=== PATIENT | female | born 1960 | race American Indian/Alaskan Native ===

== ENCOUNTER 2018-06-18 17:55 | Observation (INO) | payer BC ==
[2018-06-18 18:04] VITALS: BMI 36.3
[2018-06-18] MEDS ORDERED: Sodium Chloride 0.9% 1,000 ML IV STA (19:15)
--- NOTE | 2018-06-18 19:21 | ED PDOC ---
Arrival/HPI - General Chief Complaint: Dizziness/Lightheaded Time Seen by Provider: 06/18/18 18:31 Historian: Patient - History of Present Illness Narrative History of Present Illness (Text): 06/18/18 19:16 57yr old female with hx of headaches for many years presents today with headache upon waking in the morning. pt states the headache is the same headache as always. pt states the headache starts in the neck and wraps around both sides to the forehead. pt states the headache gradually worsened. pt states that the headache is an achy pain. denies photophobia. pt states that she is feeling extremely dizzy and off balance. pt states she vomited once which doesnt occur with her headaches. pt denies cp or sob. no fever/chills. pt states she took naproxen for headache without resolution which is also unlike her normal head aches. Past Medical History - Provider Review Nursing Documentation Reviewed: Yes - Travel History Have you recently traveled outside [place] w/in the past 3 mons?: No - Infectious Disease Hx of Infectious Diseases: None - Psychiatric Hx Substance Use: No - Surgical History Hx Hysterectomy: Yes Family/Social History - Physician Review Nursing Documentation Reviewed: Yes Family/Social History: Unknown Family HX Smoking Status: Never Smoked Hx Alcohol Use: No Hx Substance Use: No Allergies/Home Meds Allergies/Adverse Reactions: Allergies No Known Allergies Allergy (Verified 06/18/18 18:04) Home Medications: Home Meds Medication Instructions Recorded Confirmed Naproxen [Naprosyn] 500 mg PO BID 06/18/18 06/18/18 Review of Systems - Review of Systems Constitutional: absent: Fatigue, Fevers Eyes: absent: Vision Changes, Photophobia, Eye Pain ENT: Sinus Congestion. absent: Sore Throat Respiratory: absent: SOB, Cough Cardiovascular: absent: Chest Pain, Palpitations Gastrointestinal: absent: Abdominal Pain, Constipation, Diarrhea, Nausea, Vomiting Genitourinary Female: absent: Dysuria, Frequency, Hematuria Musculoskeletal: absent: Arthralgias, Back Pain, Neck Pain Skin: absent: Rash, Pruritis Neurological: Headache, Dizziness. absent: Focal Weakness, Speech Changes Psychiatric: absent: Anxiety, Depression Physical Exam Vital Signs Reviewed: Yes Vital Signs Temp Pulse Resp BP Pulse Ox 06/18/18 18:05 97.8 F 82 17 138/88 98 Temperature: Afebrile Blood Pressure: Normal Pulse: Regular Respiratory Rate: Normal Appearance: Positive for: Well-Appearing, Non-Toxic, Comfortable Pain Distress: None Mental Status: Positive for: Alert and Oriented X 3 - Systems Exam Head: Present: Atraumatic Pupils: Present: PERRL Extroacular Muscles: Present: EOMI Conjunctiva: Present: Normal Ears: Present: Normal, NORMAL TM Mouth: Present: Moist Mucous Membranes Pharnyx: Present: Normal Nose (External): Present: Atraumatic Nose (Internal): Present: Engorged, Clear Mucous Neck: Present: Normal Range of Motion Respiratory/Chest: Present: Clear to Auscultation, Good Air Exchange. No: Respiratory Distress, Accessory Muscle Use Cardiovascular: Present: Regular Rate and Rhythm, Normal S1, S2. No: Murmurs Abdomen: No: Tenderness, Distention, Peritoneal Signs Upper Extremity: Present: Normal ROM Lower Extremity: Present: Normal ROM Neurological: Present: GCS=15, Speech Normal, Motor Func Grossly Intact, Normal Sensory Function Skin: Present: Warm, Dry, Normal Color. No: Rashes Psychiatric: Present: Alert, Oriented x 3 Medical Decision Making ED Course and Treatment: 06/18/18 19:23 57yr old female with headache, dizziness and unstead gait/near syncope. cbc; wnl cmp wnl trop; wnl ekg; normal sinus rhythm at 78 bpm normal axis no ST elevations 06/18/18 21:03 FINDINGS: BRAIN No acute intraparenchymal hemorrhage. No mass lesion. No CT evidence for acute territorial infarct. No midline shift or extra-axial collections. Bilateral basal ganglia calcifications. VENTRICLES: No hydrocephalus. ORBITS: The orbits are unremarkable. SINUSES AND MASTOIDS: The paranasal sinuses and mastoid air cells are clear. BONES: No fracture. SOFT TISSUES: Unremarkable. IMPRESSION: No acute intracranial abnormality. Electronically signed on Jun 18, 2018 8:20:42 PM EST by: Martin Nino M.D., JHOAN Certified By [facility] & [facility] Trained MRI and CT Specialist pt given toradol and reglan after negative Ct. pt reassessment; pt feeling better. headache improved. still feeling slightly dizziness asa given po. case discussed with dr. escamilla; will admit observational status to remote [facility] for dizziness, headache, near syncope. consult dr. skelton. all aspects of this case were discussed the attending of record. impression: headache, dizziness, near syncope admit - RAD Interpretation Radiology Orders: 06/18/18 19:06 HEAD W/O CONTRAST [CT] Stat CHEST PORTABLE [RAD] Stat - Medication Orders Current Medication Orders: Sodium Chloride (Sodium Chloride 0.9%) 1,000 mls @ 999 mls/hr IV .Q1H1M STA Stop: 06/18/18 20:15 Metoclopramide HCl (Reglan) 10 mg IVP STAT STA Stop: 06/18/18 19:16 Disposition/Present on Arrival - Present on Arrival Any Indicators Present on Arrival: No History of DVT/PE: No History of Uncontrolled Diabetes: No Urinary Catheter: No History of Decub. Ulcer: No History Surgical Site Infection Following: None - Disposition Have Diagnosis and Disposition been Completed?: Yes Diagnosis: Dizziness, Headache Disposition: HOSPITALIZED Disposition Time: 22:00 Patient Plan: Observation Condition: FAIR Forms: [employer] (Irish)
[2018-06-18 20:07] LABS: BASO # 0.05 K/mm3 (0.0-2.0); BASO % 0.8 % (0.0-3.0); EOS # 0.2 (0.0-0.7); EOS % 2.6 % (1.5-5.0); GRAN # 3.21 (1.4-6.5); GRAN % 51.9 % (50.0-68.0); HEMOGLOBIN 12.2 g/dL (12.0-16.0); LYMPH # 2.4 (1.2-3.4); LYMPH % 39.2 % (22.0-35.0); MEAN CELL VOLUME 83.8 fl (80.0-105.0); MEAN CORPUSCULAR HEMOGLOBIN 26.8 pg (25.0-35.0); MEAN CORPUSCULAR HGB CONC 31.9 g/dl (31.0-37.0); MEAN PLATELET VOLUME 12.6 fl (7.0-11.0); MONO # 0.3 (0.1-0.6); MONO % 5.5 % (1.0-6.0); RBC 4.56 10^6/uL (3.5-6.1); RED CELL DISTRIBUTION WIDTH 15.4 % (11.5-14.5); WHITE BLOOD COUNT 6.2 10^3/uL (4.5-11.0)
[2018-06-18 20:54] LABS: ALB/GLOB RATIO 1.1 (1.1-1.8); ALT/SGPT 17 U/L (7-56); AST/SGOT 25 U/L (14-36); BLOOD UREA NITROGEN 17 mg/dL (7-21); CALCIUM 9.4 mg/dL (8.4-10.5); GFR NON-AFRICAN AMERICAN > 60
[2018-06-18 21:05] LABS: TROPONIN I < 0.01 ng/mL
[2018-06-18 22:35] LABS: URINE BILIRUBIN NEGATIVE (NEGATIVE); URINE BLOOD NEGATIVE (NEGATIVE); URINE GLUCOSE (UA) NEGATIVE (NEGATIVE); URINE LEUKOCYTE ESTERASE NEGATIVE Leu/uL (NEGATIVE); URINE PROTEIN NEGATIVE mg/dL (<30 mg/dL); URINE UROBILINOGEN 0.2 E.U./dL (<1 E.U./dL)
[2018-06-18 22:46] LABS: URINE APPEARANCE CLEAR (CLEAR); URINE COLOR YELLOW (YELLOW)
[2018-06-18] MEDS ORDERED: Sodium Chloride 0.9% 1,000 ML IV SCH (23:45)
[2018-06-19 01:04] LABS: IRON 44 ug/dL (45-180)
[2018-06-19 01:14] LABS: % IRON SATURATION 20 % (20-55); TOTAL IRON BINDING CAPACITY 222 ug/dL (265-497)
[2018-06-19 01:17] VITALS: RESP 20
--- NOTE | 2018-06-19 04:23 | CP.PCM.HP ---
History of Present Illness - History of Present Illness History of Present Illness: Tin Lanza, PGY-1 Medicine H&P Note for Dr. Hansen: CC: Headaches and dizziness Pt is a 57 yo F with pmhx of headaches, asthma and GERD who presents to the ED for headache and dizziness which started this AM. She states that she has had this headache since and was not able to eat much during the day yesterday. She states that then this AM when she woke up she noticed that the headache was still there and she also noticed dizziness upon standing. She states that she felt as if she was spinning and was unable to walk straight. She admits that the headache that she is feeling is chronic and is something that she deals with regularly. She describes the headache as a band like pain that starts from the neck. She denies noticing an aura with the beginning of the headache and reports that she only uses naproxen for the headaches which typically brings relief. She admits that even today she has not been able to eat or drink anything due to the headache and that she had one bout of non-blood, non-bilious vomiting. She continues to admit to nausea but denies any further episodes of vomiting since the isolated incident which she had earlier in the day. At this time she admits to a continued headache, but denies fevers, chills, recent infection, sick contacts, ringing in the ears, photophobia, aura prior to headache onset, chest pain, palpitations, LE swelling, SOB, cough, weakness, numbness, tingling, abd pain, or dysuria. Pmhx: headaches, asthma and GERD Pshx: Hysterectomy for fibroids 30 years ago Meds: Naproxen All: NKDA Social: Denies any tobacco hx or any etoh or illicit drug use Fam: Non-contributory Neurologist: Dr. Hoang Present on Admission - Present on Admission Any Indicators Present on Admission: No Review of Systems - Review of Systems Review of Systems: 12 point ROS reviewed and negative except for noted in HPI above. Past Patient History - Infectious Disease Hx of Infectious Diseases: None - Past Social History Smoking Status: Never Smoked - CARDIAC Hx Cardiac Disorders: No - PULMONARY Hx Respiratory Disorders: Yes Hx Asthma: Yes (seasonal) - NEUROLOGICAL Hx Neurological Disorder: Yes Hx Migraine: Yes - HEENT Hx HEENT Problems: Yes (glasses) - RENAL Hx Chronic Kidney Disease: No - ENDOCRINE/METABOLIC Hx Endocrine Disorders: No - HEMATOLOGICAL/ONCOLOGICAL Hx Blood Disorders: Yes Hx Anemia: Yes (iron def.) Hx Cancer: (familial) - INTEGUMENTARY Hx Dermatological Problems: No - MUSCULOSKELETAL/RHEUMATOLOGICAL Hx Musculoskeletal Disorders: Yes Hx Fractures: Yes (right arm) - GASTROINTESTINAL Hx Gastrointestinal Disorders: Yes Hx Gastroesophageal Reflux: Yes - GENITOURINARY/GYNECOLOGICAL Hx Genitourinary Disorders: Yes (hysterectomy/ oopherectomy) - PSYCHIATRIC Hx Psychophysiologic Disorder: No - SURGICAL HISTORY Hx Surgeries: Yes Hx Hysterectomy: Yes Meds Allergies/Adverse Reactions: Allergies Allergy/AdvReac Type Severity Reaction Status Date / Time No Known Allergies Allergy Verified 06/18/18 18:04 Physical Exam - Constitutional Appears: Well, Non-toxic, No Acute Distress - Head Exam Head Exam: ATRAUMATIC, NORMAL INSPECTION, NORMOCEPHALIC - Eye Exam Eye Exam: EOMI, Normal appearance, PERRL - Respiratory Exam Respiratory Exam: Clear to Auscultation Bilateral, NORMAL BREATHING PATTERN. absent: Accessory Muscle Use, Decreased Breath Sounds, Rales, Rhonchi, Wheezes, Respiratory Distress, Stridor - Cardiovascular Exam Cardiovascular Exam: RRR, +S1, +S2. absent: Gallop, Rubs - GI/Abdominal Exam GI & Abdominal Exam: Normal Bowel Sounds, Soft. absent: Distended, Firm, Guarding, Tenderness - Extremities Exam Extremities exam: Positive for: normal capillary refill, normal inspection, pedal pulses present - Back Exam Back exam: NORMAL INSPECTION. absent: CVA tenderness (L), CVA tenderness (R) - Neurological Exam Neurological exam: Alert, Oriented x3 - Psychiatric Exam Psychiatric exam: Normal Affect, Normal Mood - Skin Skin Exam: Dry, Normal Color, Warm Results - Vital Signs Recent Vital Signs: Last Vital Signs Temp 98.4 F 06/19/18 00:18 Pulse 71 06/19/18 02:00 Resp 20 06/19/18 00:35 BP 116/67 06/19/18 00:18 Pulse Ox 98 06/19/18 00:18 - Labs Result Diagrams: 06/18/18 19:30 06/18/18 20:30 Labs: Laboratory Results - last 24 hr 06/18/18 06/18/18 06/18/18 19:30 19:30 20:30 WBC 6.2 RBC 4.56 Hgb 12.2 Hct 38.2 MCV 83.8 MCH 26.8 MCHC 31.9 RDW 15.4 H Plt Count 198 MPV 12.6 H Gran % 51.9 Lymph % (Auto) 39.2 H Dale % (Auto) 5.5 Eos % (Auto) 2.6 Baso % (Auto) 0.8 Gran # 3.21 Lymph # (Auto) 2.4 Dale # (Auto) 0.3 Eos # (Auto) 0.2 Baso # (Auto) 0.05 ESR 52 H Sodium 140 Potassium 3.8 Chloride 107 Carbon Dioxide 26 Anion Gap 11 BUN 17 Creatinine 0.9 Est GFR ( Amer) > 60 Est GFR (Non-Af Amer) > 60 Random Glucose 97 Calcium 9.4 Iron TIBC % Saturation Total Bilirubin 0.6 AST 25 ALT 17 Alkaline Phosphatase 112 Lactate Dehydrogenase 394 Total Creatine Kinase 161 Troponin I < 0.01 Total Protein 7.6 Albumin 4.0 Globulin 3.6 Albumin/Globulin Ratio 1.1 TSH 3rd Generation Urine Color Urine Appearance Urine pH Ur Specific Mystic Urine Protein Urine Glucose (UA) Urine Ketones Urine Blood Urine Nitrate Urine Bilirubin Urine Urobilinogen Ur Leukocyte Esterase 06/18/18 06/18/18 06/18/18 20:30 20:30 22:20 WBC RBC Hgb Hct MCV MCH MCHC RDW Plt Count MPV Gran % Lymph % (Auto) Dale % (Auto) Eos % (Auto) Baso % (Auto) Gran # Lymph # (Auto) Dale # (Auto) Eos # (Auto) Baso # (Auto) ESR Sodium Potassium Chloride Carbon Dioxide Anion Gap BUN Creatinine Est GFR ( Amer) Est GFR (Non-Af Amer) Random Glucose Calcium Iron 44 L TIBC 222 L % Saturation 20 Total Bilirubin AST ALT Alkaline Phosphatase Lactate Dehydrogenase Total Creatine Kinase Troponin I Total Protein Albumin Globulin Albumin/Globulin Ratio TSH 3rd Generation 3.05 Urine Color Yellow Urine Appearance Clear Urine pH 7.0 Ur Specific Mystic 1.010 Urine Protein Negative Urine Glucose (UA) Negative Urine Ketones Negative Urine Blood Negative Urine Nitrate Negative Urine Bilirubin Negative Urine Urobilinogen 0.2 Ur Leukocyte Esterase Negative Assessment & Plan - Assessment and Plan (Free Text) Assessment: Pt is a 57 yo F with pmhx of headaches, asthma and GERD who presents to the ED for headache and dizziness which started this AM. Head CT in ED was negative for acute pathology. Plan: 1. Dizziness likely 2/2 poor po intake: - Head CT was negative for acute intracranial pathology - MRI and MRA brain with contrast - MRI internal auditory canal - Neuro consult: Dr. Lal - Lipid - TSH - ESR - CRP - HgbA1c - ASA - Lovenox - Lipitor 2. Hx of GERD: - Protonix 3. Hx of asthma: - Pt states that she has not used rescue inhaler in a long time and is having no respiratory complaints at this time - Will continue to monitor pt 4. PPx: - GI: Protonix - DVT: Lovenox Case seen and discussed with Dr. Jade Lanza, PGY-1
[2018-06-19] MEDS ORDERED: Pantoprazole 40 mg EC Tab PO SCH (06:00)
[2018-06-19 06:34] LABS: BASO # 0.06 K/mm3 (0.0-2.0); BASO % 0.9 % (0.0-3.0); EOS # 0.2 (0.0-0.7); EOS % 2.7 % (1.5-5.0); GRAN # 2.98 (1.4-6.5); GRAN % 42.4 % (50.0-68.0); HEMOGLOBIN 11.4 g/dL (12.0-16.0); LYMPH # 3.3 (1.2-3.4); LYMPH % 46.9 % (22.0-35.0); MEAN CELL VOLUME 83.6 fl (80.0-105.0); MEAN CORPUSCULAR HEMOGLOBIN 27.1 pg (25.0-35.0); MEAN CORPUSCULAR HGB CONC 32.4 g/dl (31.0-37.0); MEAN PLATELET VOLUME 12.5 fl (7.0-11.0); MONO # 0.5 (0.1-0.6); MONO % 7.1 % (1.0-6.0); RBC 4.21 10^6/uL (3.5-6.1); RED CELL DISTRIBUTION WIDTH 15.4 % (11.5-14.5)
[2018-06-19 07:17] LABS: ALB/GLOB RATIO 1.1 (1.1-1.8); ALBUMIN 3.6 g/dL (3.0-4.8); ALT/SGPT 23 U/L (7-56); AST/SGOT 23 U/L (14-36); BLOOD UREA NITROGEN 13 mg/dL (7-21); CALCIUM 8.8 mg/dL (8.4-10.5); GFR NON-AFRICAN AMERICAN > 60; HDL CHOLESTEROL 42 mg/dL (29-60)
[2018-06-19 07:24] LABS: LDL CHOLESTEROL 195 mg/dL (0-129)
[2018-06-19] MEDS ORDERED: Naproxen 550 mg Tab PO PRN (09:13)
--- NOTE | 2018-06-19 09:27 | RAD ---
Date of service: 06/18/2018 HISTORY: dizziness COMPARISON: 10/18/2014 FINDINGS: LUNGS: No active pulmonary disease. PLEURA: No significant pleural effusion identified, no pneumothorax apparent. CARDIOVASCULAR: No aortic atherosclerotic calcification present. Normal cardiac size. No pulmonary vascular congestion. OSSEOUS STRUCTURES: No significant abnormalities. VISUALIZED UPPER ABDOMEN: Normal. OTHER FINDINGS: None. IMPRESSION: No active disease.
[2018-06-19] MEDS ORDERED: Enoxaparin 40 mg Syringe SC SCH (10:00)
--- NOTE | 2018-06-19 10:08 | CT ---
Date of service: 06/18/2018 PROCEDURE: CT HEAD WITHOUT CONTRAST. HISTORY: headache, dizziness COMPARISON: None available. TECHNIQUE: Axial computed tomography images were obtained through the head/brain without intravenous contrast. Radiation dose: Total exam DLP = 1089.72 mGy-cm. This CT exam was performed using one or more of the following dose reduction techniques: Automated exposure control, adjustment of the mA and/or kV according to patient size, and/or use of iterative reconstruction technique. FINDINGS: HEMORRHAGE: No intracranial hemorrhage. BRAIN: No mass effect or edema. No atrophy or chronic microvascular ischemic changes. VENTRICLES: Unremarkable. No hydrocephalus. CALVARIUM: Unremarkable. PARANASAL SINUSES: Unremarkable as visualized. No significant inflammatory changes. MASTOID AIR CELLS: Unremarkable as visualized. No inflammatory changes. OTHER FINDINGS: None. IMPRESSION: Normal CT of the Head.
[2018-06-19 10:28] LABS: T4 11.2 ug/dL (5.5-11.0)
[2018-06-19] MEDS ORDERED: Gadodiamide 287 MG/ML VIAL (15ML) IV ONE (11:38)
[2018-06-19] MEDS ORDERED: Dexamethasone 4 MG in Sodium Chloride 0.9% 50 ML IV ONE (11:40)
[2018-06-19 12:50] LABS: FOLATE 7.4 ng/mL
--- NOTE | 2018-06-19 13:14 | MRI ---
Date of service: 06/19/2018 PROCEDURE: MRI BRAIN WITH AND WITHOUT CONTRAST HISTORY: HEADACHE COMPARISON: None available. TECHNIQUE: Multiplanar, multisequence MR images of the brain were obtained with and without intravenous contrast enhancement. 15 cc of Omniscan FINDINGS: HEMORRHAGE: None DWI: No evidence of an acute or early subacute infarction. BRAIN PARENCHYMA: No mass,mass effect or edema. No atrophy or chronic microvascular ischemic changes. ENHANCEMENT: No abnormal intracranial enhancement. VENTRICLES: Unremarkable. No hydrocephalus. CRANIUM: Unremarkable. ORBITS: Grossly unremarkable. PARANASAL SINUSES/MASTOIDS: Clear VASCULAR SYSTEM: Skull base flow voids intact. OTHER FINDINGS: None . IMPRESSION: Unremarkable pre and post contrast enhanced MRI of the brain.
--- NOTE | 2018-06-19 13:16 | MRI ---
Date of service: 06/19/2018 PROCEDURE: Magnetic Resonance Angiography Brain HISTORY: HEADCAHE COMPARISON: None available. TECHNIQUE: 3D time of flight MR angiography of the intracranial arteries was performed. Rotating maximum intensity projection images were generated. FINDINGS: INTERNAL CAROTID ARTERIES: Unremarkable. The skull base, petrous, cavernous and supraclinoid segments are bilaterally widely patient. ANTERIOR CEREBRAL ARTERIES: Unremarkable. A1 and A2 segments are widely patent. Smaller distal branches unremarkable, as visualized. MIDDLE CEREBRAL ARTERIES: Unremarkable. M1 and M2 segments are widely patent. Perisylvian branches grossly symmetric. POSTERIOR CIRCULATION: Basilar Artery: Unremarkable. Distal Vertebral Arteries: Unremarkable. Posterior Cerebral Arteries: Unremarkable. Posterior Inferior Cerebellar Arteries: Unremarkable. ANEURYSM/ VASCULAR MALFORMATIONS: None. OTHER FINDINGS: None. IMPRESSION: Unremarkable MR angiography of the brain.
[2018-06-19 14:17] LABS: BARBITURATES, UR NEGATIVE (NEGATIVE); BENZODIAZEPINES, UR NEGATIVE (NEGATIVE); OPIATES, UR NEGATIVE (NEGATIVE); PHENCYCLIDINE, UR NEGATIVE (NEGATIVE)
[2018-06-19 17:01] VITALS: BP 123/85; PULSE 83; TEMP 97.9; O2SAT 98
--- NOTE | 2018-06-19 18:25 | CARD ---
APPROVED REPORT Date of service: 06/18/2018 EKG Measurement Heart [id number] <Conclusion> Normal sinus rhythm Minimal voltage criteria for LVH, may be normal variant Borderline ECG
--- NOTE | 2018-06-19 18:33 | CON ---
DATE: 06/19/2018 NEUROLOGY CONSULTATION CHIEF COMPLIANT: Headache and dizziness. HISTORY OF PRESENT ILLNESS: This is a 57-year-old woman with past medical history of headache, asthma, GERD, who presented to hospital for headache with dizziness. She mentioned that headache is diffuse, frontal pressure type, throbbing in nature. It feels like a band-like pressure starting from the cape of the neck radiating up to the frontal area without any auras. She also gets dizziness with mild spinning sensation of the room. I have given her one dose of dexamethasone 4 mg IV push x1 dose, which had relieved her headache and improved her dizziness. She has mild cervical tightness, but no cervical radiculopathy symptoms. Her MRI of the brain and MRI of the head are unremarkable for anything acute. Her Neurology as an outpatient is Dr. Mittal. PAST MEDICAL HISTORY: Headaches, asthma, and GERD. PAST SURGICAL HISTORY: Hysterectomy and fibroids 30 years ago. MEDICATIONS AT HOME: Naproxen. ALLERGIES: NO KNOWN DRUG ALLERGIES. SOCIAL HISTORY: No illicit drug use, smoking or EtOH abuse. FAMILY HISTORY: Noncontributory. REVIEW OF SYSTEMS: Fourteen-point review of systems is as per HPI. LABORATORY DATA: Sodium 138, potassium 3.6, chloride 109, carbon dioxide 24, BUN of 30, creatinine 0.8 and random glucose 91. PHYSICAL EXAMINATION GENERAL: The patient is sitting up in bed, in no acute distress. VITAL SIGNS: Temperature 97.6, pulse rate 75, blood pressure 150/72, respirations 20, and oxygen saturation 100% on room air. HEENT: Head is atraumatic, normocephalic. PERRLA. Extraocular muscles intact. NECK: Supple. No JVD. No adenopathy noted. LUNGS: Clear to auscultation. No adventitious sounds. HEART: S1 and S2. Normal rate and rhythm. No murmurs, rubs, or gallops. ABDOMEN: Soft, nontender, and nondistended. Bowel sounds present. EXTREMITIES: No clubbing. No cyanosis. Peripheral pulses 2+ felt bilaterally. NEUROLOGIC: The patient is alert and oriented to person, place, and month and year. Speech is fluent without errors. Cranial nerves II through XII are intact. Motor exam; moves all extremities equally. No pronator drift seen. Sensory exam; light touch, pinprick, proprioception and vibration are intact. DTRs are 2+ throughout. Coordination; [id number] intact. No dysmetria noted. Toes are downgoing bilaterally. Gait is deferred for now. IMPRESSION: Her headaches are more of a migraine without aura with underlying cervicalgia with superimposed underlying mild vertiginous symptoms. She is status post intravenous dexamethasone, which has improved her symptoms. MRI of the brain and MRI of the head showed no acute intracranial abnormality. RECOMMENDATIONS: At this time; 1. Naproxen 550 mg p.o. b.i.d. p.r.n. for onset of headache. 2. Aspirin 81 and Lipitor 40 mg for stroke prevention. 3. Continue Lipitor since she has elevated LDL and total cholesterol. 4. Her thyroxin level was 11.2, which is elevated for free T4. TSH was normal. Her B12 is normal. 5. Follow up with primary care as outpatient. 6. She is clinically stable from my standpoint. 7. MRI of cervical spine is current pending, which can also be done as outpatient and follow up on this as an outpatient. Robbin Lal MD
--- NOTE | 2018-06-19 19:29 | CARD ---
APPROVED REPORT Date of service: 06/19/2018 EKG Measurement Heart [id number] <Conclusion> Normal sinus rhythm Voltage criteria for left ventricular hypertrophy Otherwise normal ECG
--- NOTE | 2018-06-20 02:54 | HP ---
DATE OF EXAM: 06/19/2018 HISTORY OF PRESENT ILLNESS: The patient is a 57-year-old morbidly obese female presented to the emergency room as a walk-in patient complaining of dizziness and lightheadedness with severe headache started today. The patient took Naprosyn without any relief. According to the ER physician evaluation, the patient presented with headache which started early this morning. The patient also has history of chronic headache, but the patient also stated that the headache was starting in the back of the neck, shoulder, both trapezius and wrapping around both sides of the head and in the back and it has been worsening which is new for her. The patient denied any visual complaints, complained of dizziness and lightheadedness, but also no syncope. She also had some nausea and vomiting, took Naprosyn without resolution of the symptoms. REVIEW OF SYSTEMS: A 14-system review was done, pertinent positive and negative dictated above. CODE STATUS: Full code. LIVING WILL ADVANCE DIRECTIVE: None. ALLERGIES: NONE. Height is 5 feet 2 inches. Weight is 199. BMI is 36.4. MENSTRUAL HISTORY: Postmenopausal. The patient denies being since hysterectomy. FAMILY HISTORY: The patient denied any medical family history. SOCIAL HISTORY: As per [employer] [facility] negative for substance abuse, negative for alcohol, negative for smoking. MEDICATIONS: The patient's medications according to the patient is only Naprosyn. 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 The patient also has history of cervical spine disk disease, as per the patient history of multiple MRIs of the brain in the last few years, history of chronic microvascular ischemic disease of the brain, history of empty and expanded sella turcica, history of questionable and possible pseudotumor cerebri, history of empty sella syndrome, history of gastroesophageal reflux, history of total abdominal hysterectomy and oophorectomy, history of right arm fracture, history of migraine headache, history of questionable seasonal asthma, history of iron-deficiency anemia. Past medical history is also significant for headaches, history of asthma, history of gastroesophageal reflux disease, history of chronic headache, is being followed by neurologist in [place], history of hysterectomy for uterine fibroid. PHYSICAL EXAMINATION: VITAL SIGNS: T-max 97.8, heart rate is 82, blood pressure 138/88, respiration is 17-16, O2 sat is 98%. GENERAL: The patient is seen sitting up in the stretcher. HEENT AND NECK: Head examination; normocephalic, atraumatic. HEENT examination shows pink conjunctivae. Anicteric sclerae. No oropharyngeal lesion. No neck rigidity. Questionable some trapezius tenderness noted. CHEST: Symmetrical. LUNGS: Show no audible crackle, rales or wheezing. CARDIOVASCULAR: S1, S2. No audible murmur, gallop or rub at this time. BREASTS: Positive heavy breasts noted. ABDOMEN: Obese. Positive bowel sound. No palpable hepatosplenomegaly. Positive healed surgical scar of hysterectomy. GENITALIA: Female. RECTAL: Deferred. EXTREMITIES: Show no pitting edema, no calf tenderness, no Barb's signs. MUSCULOSKELETAL: Shows elevated body mass index of 36. NEUROLOGIC: The patient is alert, awake, and oriented x3. Motor strength is 5/5. Gait examination is independent. Lower extremity and upper extremity shows no pitting edema. The patient's neurological examination is without any gross deficit. DIAGNOSTICS: WBC 6.2, hemoglobin and hematocrit 12.2 and 38.2 platelets 198. ESR is 52. Sodium 140, potassium 3.8, chloride 107, CO2 of 26, anion gap 11, BUN 17, creatinine 0.9, GFR greater than 60, glucose 97. Hemoglobin A1c 5.8. Calcium 9.4, iron 44, TIBC 222, saturation 20. LFTs are normal. Troponin is negative. Urinalysis is negative. Chest x-ray was done in the emergency room, which official reading was no active disease. EKG was done in the emergency room, which shows normal sinus rhythm, left ventricular hypertrophy, left axis deviation. CAT scan of the head was done which was negative for any pathology. The patient was evaluated and seen in the emergency room by the ER physician teacher assistant. The patient was also evaluated by the medical lab assistant. The patient was advised to be admitted to observation. ASSESSMENT: 1. Questionable and possible intractable headache versus migraine headache. 2. Severe symptomatic intractable headache with dizziness, lightheadedness and near syncope. 3. Morbid obesity with elevated body mass index of 36. 4. Elevated erythrocyte sedimentation rate of 52. 5. History of chronic headache. 6. Questionable iron deficiency. 7. Questionable left ventricular hypertrophy with left axis deviation. 8. Questionable possible migraine with or without aura. 9. Questionable cervicalgia. 10. Questionable vertigo. PLAN: At this time, the patient will be admitted to [facility]. Neurology consultation ordered. The patient has been ordered repeat labs. Lipid panel ordered, B12 and folate ordered, thyroid panel has been ordered. The patient has been ordered an MRI and MRA of the brain. The patient's repeat EKG ordered. At present, the patient will be admitted to [facility]. The patient received the patient already received in the emergency room, Reglan 10 mg and Toradol 30 mg IV. The patient was given aspirin 325 in the emergency room. The patient was given Reglan 10 mg IV. The patient was given IV fluid. The patient was given Toradol by the ER staff. The patient was given Zofran and the patient was admitted. At present, the patient's further management will be dependent upon the patient's clinical condition, hemodynamic status and as per the patient response to therapeutic intervention, as per the patient's diagnostic test results, as per recommendation by Neurology. Dictated and electronically signed, not read. Enoch Hansen MD
--- NOTE | 2018-06-20 23:00 | DS ---
HISTORY OF PRESENT ILLNESS: The patient was seen in room 374, bed 2. The patient was cleared for discharge by Neurology. The patient headache has completely resolved after the patient received a dose of IV Decadron by Dr. Lal. The patient was given a dose of IV Decadron 4 mg and the patient's symptoms completely resolved. The patient was seen ambulating in the room. PHYSICAL EXAMINATION: VITAL SIGNS: T-max 97.9, heart rate 69, 75, 87, 86, 83, blood pressure 170/23, 123/85, respiration 20, O2 sat 98% to 100%. HEENT: Head is normocephalic, atraumatic. HEENT examination shows pink conjunctivae. Anicteric sclerae. No oropharyngeal lesion. NECK: No neck rigidity. CHEST: Symmetrical. LUNGS: Shows no audible crackle, rales or wheezing. CARDIOVASCULAR: S1, S2, regular rhythm. No audible murmur, gallop or rub. ABDOMEN: Soft, obese. Positive bowel sound. No palpable hepatosplenomegaly. GENITALIA: Female. RECTAL: Deferred. MUSCULOSKELETAL: Shows a body mass index of 36. VASCULAR: Palpable pulses. EXTREMITIES: Text. ABDOMEN: Text. NEUROLOGIC: Cranial nerves II-XII intact. Gait examination is independent. DIAGNOSTICS: On 06/19/2018, WBC 7.0, hemoglobin and hematocrit 11.4, 35.2, platelet 181. Sodium 138, potassium 3.6, chloride 109, CO2 24, anion gap 9, BUN 13, creatinine 0.8, GFR greater than 60, glucose 91. Hemoglobin A1c is 5.8. Calcium 8.8, phosphorus 3.4, magnesium 2.0. LFTs are normal. Troponin is negative. C-reactive protein is negative. Cholesterol is elevated at 250. LDL is 195, HDL 42. B12, folate is normal. TSH 3.24. Urinalysis was negative. Urine drug screen was negative. The patient was seen by Neurology. Their recommendation was noted. MRI, MRA of the brain, CT head, EKG, chest x-ray all reviewed. FINAL IMPRESSION AND DISCHARGE DIAGNOSES: 1. Questionable intractable headache, probably migraine without aura with underlying cervical disk disease and cervicalgia cervical with vertigo (resolved). 2. Status post IV Decadron treatment. 3. Morbid obesity with elevated body mass index of 37. 4. Morbid obesity. 5. Mild normocytic anemia. 6. Elevated erythrocyte sedimentation rate of 52. 7. Hypercholesterolemia and hyperlipidemia with elevated LDL. 8. Mild iron deficiency, questionable. 9. History of empty sella syndrome versus pseudotumor cerebri. 10. Hypertensive cardiovascular disease . PLAN: The patient was cleared for discharge. The patient's symptoms resolved. The patient was discharged on following medications, aspirin 81 mg daily and Lipitor 40 mg daily. The patient is already on Naprosyn 500 twice a day and Protonix 40 mg daily. DISCHARGE FOLLOWUP: The patient was advised to follow up with PMD within 1 week. The patient was advised to follow up with Dr. Mittal, the patient's primary neurologist. During this hospitalization, the was advised all the details about medical condition, diagnosis, diagnostic test results all discussed and explained to the patient at length and all questions concerned answered, which she acknowledged and understand. Time spent in the discharge process was 45 minutes. Dictated and electronically signed, not read. Enoch Hansen MD
== END 2018-06-19 17:27 | disposition home or self-care (01) ==
LOC: ED 17:55 → ERH 23:02 → 3RSO 06-19 00:45
PROVIDERS: ADMIT Internal Medicine; ATTEND Internal Medicine
DX: G43.009 Migraine without aura, not intractable, without status migrainosus (principal); M54.2 Cervicalgia; R42 Dizziness and giddiness; E66.01 Morbid (severe) obesity due to excess calories; E78.5 Hyperlipidemia, unspecified; K21.9 Gastro-esophageal reflux disease without esophagitis; D50.9 Iron deficiency anemia, unspecified; Z90.710 Acquired absence of both cervix and uterus; Z68.36 Body mass index [BMI] 36.0-36.9, adult; Z87.81 Personal history of (healed) traumatic fracture; J45.909 Unspecified asthma, uncomplicated; R55 Syncope and collapse; R70.0 Elevated erythrocyte sedimentation rate
CPT/HCPCS: 36415; 70450; 70544; 70553; 71045; 80053; 80061; 81003; 82550; 82607; 82728; 82746; 82948; 83036; 83540; 83550; 83615; 83735; 84100; 84439; 84443; 84484; 85025; 85651; 86140; 93005; 96361; 96374; 96375; 99285; A9579; G0378; G0480; J1100; J1650; J1885; J2765; J7030